=== PATIENT | male | born 1935 | race Hispanic/Latino ===

== ENCOUNTER → 2024-09-05 | Outpatient (CLI) | payer OTHER | END | disposition home or self-care (01) | LOC: SHCH 08:06 | PROVIDERS: ATTEND Internal Medicine Cardiovascular Disease | DX: R01.1 Cardiac murmur, unspecified (principal) | CPT/HCPCS: 93306 ==

== ENCOUNTER → 2024-10-09 | Outpatient (CLI) | payer OTHER ==
--- NOTE | 2024-10-15 21:34 | HMCSR ---
APPROVED REPORT Bilateral Lower Extremity Venous Study for DVT., Venous Competence. Indications PVD , TDS Pt. unable to hold still. Vein Imaging CFV (R): Normal flow, augmentation and compression. No evidence of DVT. 10.3mm 1233ms of reflux. SFJ (R): Normal flow, augmentation and compression. No evidence of DVT. FEM (R): Normal flow, augmentation and compression. No evidence of DVT. POP (R): Normal flow, augmentation and compression. No evidence of DVT. DFV (R): Normal flow, augmentation and compression. No evidence of DVT. PTV (R): Normal flow, augmentation and compression. No evidence of DVT. Peroneals (R): Normal flow, augmentation and compression. No evidence of DVT. CFV (L): Normal flow, augmentation and compression. No evidence of DVT. 11.5mm 917ms of reflux. SFJ (L): Normal flow, augmentation and compression. No evidence of DVT. FEM (L): Normal flow, augmentation and compression. No evidence of DVT. POP (L): Normal flow, augmentation and compression. No evidence of DVT. DFV (L): Normal flow, augmentation and compression. No evidence of DVT. PTV (L): Normal flow, augmentation and compression. No evidence of DVT. Peroneals (L): Normal flow, augmentation and compression. No evidence of DVT. Technologist Impression Deep Veins of Bilateral Lower extremities appear patent and compressible without thrombus. Deep Vein reflux seen in the RCFV. Superficial venous insufficiency seen in the RGSV and LGSV RGSV junction3.4mm 472ms thigh 4.0mm 2033ms knee 2.4mm 0.0ms calf 2.0mm 372ms (cluster of veins) RSSV Prox 2.6mm 0.0ms Mid 1.9mm 0.0ms LGSV junction 8.8mm 1283ms thigh 3.2mm 0.0ms knee 2.7mm 1289ms calf 1.9mm 217ms (cluster of veins) LSSV Prox 1.2mm 0.0ms (small) Mid 1.2mm 0.0ms Technically difficult study Conclusion Deep Vein reflux seen in the RCFV. Superficial venous insufficiency seen in the RGSV and LGSV Consider formal venogram with IVUS if iliac vein compression is suspected Conclusion Deep Vein reflux seen in the RCFV. Superficial venous insufficiency seen in the RGSV and LGSV Consider formal venogram with IVUS if iliac vein compression is suspected
--- NOTE | 2024-10-15 21:35 | HMCSR ---
APPROVED REPORT Laterality: Bilateral Indications PVD VELOCITY AND DOPPLER WAVEFORM ANALYSIS ANAESTHETIC TECHNICIAN (R) 81.6cm/sec, Triphasic, ANAESTHETIC TECHNICIAN (L) 96.9cm/sec, Triphasic, Prof Fem Art. (R) 49.3cm/sec, Biphasic, Prof Fem Art. (L) 51.1cm/sec, Biphasic, Fem Art Prox. (R) 100.5cm/sec, Triphasic, Fem Art Prox. (L) 74.5cm/sec, Triphasic, Fem Art Mid. (R) 87.3cm/sec, Triphasic, Fem Art Mid. (L) 85.2cm/sec, Triphasic, Fem Art Dist (R) 42.6cm/sec, Triphasic, Fem Art Dist. (L) 95.1cm/sec, Triphasic, Pop Art(AK) (R) 79.0cm/sec, Triphasic, Pop Art (AK) (L) 46.0cm/sec, Triphasic, Pop Art (Fossa)(R) 57.4cm/sec, Triphasic, Pop Art (Fossa) (L) 47.7cm/sec, Triphasic, Pop Art(BK) (R) 33.6cm/sec, Triphasic, Pop Art (BK) (L) 61.7cm/sec, Triphasic, RADIO TOWER TECHNICIAN Dist. (R) 42.2cm/sec, Monophasic, RADIO TOWER TECHNICIAN Dist. (L) 56.1cm/sec, Triphasic, Per Art Dist. (R) 179.4cm/sec, Monophasic, Per Art Dist. (L) 52.2cm/sec, Monophasic, ÓSCAR Dist. (R) 122.4cm/sec, Monophasic, ÓSCAR Dist. (L) 58.0cm/sec, Monophasic, Technologist Impression Diffuse atherosclerosis throughout the bilateral lower extremities. 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
== END | disposition home or self-care (01) ==
LOC: SHCH 09:07
PROVIDERS: ATTEND Internal Medicine Cardiovascular Disease
DX: I87.2 Venous insufficiency (chronic) (peripheral) (principal); I87.1 Compression of vein; I73.9 Peripheral vascular disease, unspecified
CPT/HCPCS: 93925; 93970